=== PATIENT | female | born 1980 | race Two or more races ===

== ENCOUNTER 2016-11-14 05:58 | Observation (INO) | payer MEDICAID ==
[2016-11-12 15:42] VITALS: BMI 20.7
[2016-11-14] VITALS (14 sets, daily range): BP systolic 92–121; RESP 12–20; TEMP 97.4–98.7; Ht 160 cm; Wt 53.1 kg
[~2016-11-14] VITALS: Ht 160 cm; Wt 53.1 kg
[2016-11-14] MEDS ORDERED: CLINDAMYCIN 900 MG in DEXTROSE 5% 50 ML IV ONE (06:35)
[2016-11-14] MEDS ORDERED: GENTAMICIN 280 MG in SODIUM CHLORIDE 0.9% 100 ML IV ONE (06:40)
[2016-11-14] MEDS ORDERED: ONDANSETRON 4 MG VIAL IV ONE (07:40)
[2016-11-14] MEDS ORDERED: LIDOCAINE 1% BUFFERED 1 ML SYR INTRADERM PRN (07:40)
[2016-11-14] MEDS ORDERED: MIDAZOLAM 2 MG/2 ML INJ IV ONE (07:40)
[2016-11-14] MEDS ORDERED: GLYCOPYRROLATE 0.2 MG/ML VIAL IV ONE ×2 (07:40→14:26)
[2016-11-14] MEDS ORDERED: LACT RINGERS 1,000 ML IV SCH (07:40)
[2016-11-14] MEDS ORDERED: MORPHINE 4 MG/ML SYR IV PRN (08:55)
[2016-11-14] MEDS ORDERED: ONDANSETRON 4 MG VIAL IV PRN ×2 (08:55→09:50)
[2016-11-14] MEDS ORDERED: MEPERIDINE 25 MG/ML IV PRN (08:55)
[2016-11-14] MEDS ORDERED: OXYCODONE 5 MG TAB PO PRN (08:55)
[2016-11-14] MEDS ORDERED: MORPHINE 2 MG/ML SYR IV PRN (08:55)
[2016-11-14] MEDS ORDERED: MORPHINE 50 MG/50 ML PCA BAG IV SCH (09:50)
[2016-11-14] MEDS ORDERED: OXYCODONE/APAP 5/325 TAB PO PRN (09:50)
[2016-11-14] MEDS ORDERED: KETOROLAC 30 MG/ML VIAL IV PRN (09:50)
[2016-11-14] MEDS ORDERED: ZOLPIDEM 5 MG TAB PO PRN (09:50)
[2016-11-14] MEDS ORDERED: BISACODYL 10 MG SUPP RECTAL PRN (09:50)
[2016-11-14] MEDS ORDERED: PROMETHAZINE 25 MG/ML VIAL IM/IV PRN (09:50)
[2016-11-14] MEDS: DILAUDID 1 MG/ML AMP IV PRN ×2 (10:19→10:42)
[2016-11-14] MEDS ORDERED: DEXAMETHASONE 4 MG/ML VIAL IV ONE (14:26)
[2016-11-14] MEDS ORDERED: PROPOFOL 20 ML PER ML IV ONE (14:26)
[2016-11-14] MEDS ORDERED: ACETAMINOPHEN 1,000 MG/100 ML IV ONE (14:26)
[2016-11-14] MEDS ORDERED: LIDOCAINE 2% SYR 5 ML IV ONE (14:26)
[2016-11-14] MEDS ORDERED: NEOSTIGMINE 10 MG/10 ML VIAL IV ONE (14:26)
[2016-11-14] MEDS ORDERED: ROCURONIUM 50 MG VIAL IV ONE (14:26)
[2016-11-14] MEDS ORDERED: DILAUDID 1 MG/ML AMP IV ONE (14:26)
[2016-11-14] MEDS ORDERED: FENTANYL 100 MCG/2 ML AMP IV ONE (14:26)
[2016-11-14] MEDS ORDERED: VASOPRESSIN 20 UNITS/ML VIAL IV ONE (14:26)
[2016-11-14] MEDS ORDERED: KETOROLAC 30 MG/ML VIAL IV ONE (14:26)
[2016-11-14] MEDS: CLINDAMYCIN 900 MG in DEXTROSE 5% 50 ML IV SCH (16:59)
[2016-11-14] MEDS ORDERED: DOCUSATE SOD 100 MG CAP PO ONE (21:00)
[2016-11-15] MEDS: CLINDAMYCIN 900 MG in DEXTROSE 5% 50 ML IV SCH (00:47)
[2016-11-15] MEDS: LACT RINGERS 1,000 ML IV SCH ×2 (00:47→08:26)
[2016-11-15 03:51] VITALS: BP_SYST 105; RESP 16; TEMP 97.9
[2016-11-15 08:14] VITALS: BP_SYST 117; RESP 16; TEMP 98
[2016-11-15 11:13] VITALS: BP_SYST 115; RESP 16; TEMP 98.3
[2016-11-15 11:30] VITALS: BP_SYST 117; RESP 16; TEMP 98
== END 2016-11-15 12:00 | disposition home or self-care (01) ==
LOC: OSEC 05:58 → SDS 09:48 → ENPENDDIS 09:48 → 3S 11:18
PROVIDERS: ADMIT Obstetrics & Gynecology; ATTEND Obstetrics & Gynecology
CPT/HCPCS: 81025; 85025; 88307; 94762; 94799